=== PATIENT | female | born 1950 ===

== ENCOUNTER 2017-02-08 10:46 | Emergency (ER) | payer OTHER ==
[2017-02-08 11:05] VITALS: BP 122/83; PULSE 89; RESP 16; TEMP 98; O2SAT 100
--- NOTE | 2017-02-08 11:56 | ED PDOC ---
HPI: Wound Care - HPI Time Seen by Provider: 02/08/17 11:03 Chief Complaint (Nursing): Suture/Staple Removal History Per: Patient Additional Complaint(s): Pt. states on 12/21/2016 she had sutures placed on her L foot. Pt. states she did not get her sutures removed as she is DM and thought that she would require a longer time to heal. Denies pain, fever, discharge, swelling. Past Medical History Reviewed: Historical Data, Nursing Documentation, Vital Signs Vital Signs: Last Vital Signs Temp 98.0 F 02/08/17 11:18 Pulse 89 02/08/17 11:18 Resp 16 02/08/17 11:18 BP 122/83 02/08/17 11:18 Pulse Ox 100 02/08/17 11:18 - Family History Family History: States: No Known Family Hx - Allergies Allergies/Adverse Reactions: Allergies Allergy/AdvReac Type Severity Reaction Status Date / Time No Known Allergies Allergy Verified 02/08/17 11:18 Review of Systems ROS Statement: Except As Marked, All Systems Reviewed And Found Negative Physical Exam - Physical Exam Appears: Positive for: Well, Non-toxic, No Acute Distress Skin: Positive for: Normal Color, Warm. Negative for: Rash Extremity: Positive for: Normal ROM, Other (healing sutured wound on dorsal 5th MCP with [address] without surrounding erythema, swelling, or discharge ) - ECG O2 Sat by Pulse Oximetry: 100 - Progress ED Course And Treament: 3 sutures removed by PA without difficulty. Disposition - Clinical Impression Clinical Impression: Encounter for removal of sutures, Visit for wound check - Patient ED Disposition Is Patient to be Admitted: No - Disposition Disposition: Routine/Home Disposition Time: 11:40 Condition: STABLE Instructions: Stitches Removal (ED)
== END 2017-02-08 13:03 | disposition home or self-care (01) ==
LOC: H.ER 10:46
DX: Z48.02 Encounter for removal of sutures (principal)

== ENCOUNTER 2017-03-24 13:28 | Emergency (ER) | payer OTHER ==
[2017-03-24 13:40] VITALS: O2SAT 98
--- NOTE | 2017-03-24 14:40 | ED PDOC ---
Lower Extremity Pain/Injury Time Seen by Provider: 03/24/17 14:28 Chief Complaint (Nursing): Lower Extremity Problem/Injury Chief Complaint (Provider): Foot pain History Per: Patient Additional Complaint(s): Pt c/o right foot pain x 2 month, worse with ambulation. Denies injury. Hx of DM and HTN. Past Medical History Reviewed: Nursing Documentation, Vital Signs Vital Signs: Last Vital Signs Temp 98 F 03/24/17 13:36 Pulse 97 H 03/24/17 13:36 Resp 20 03/24/17 13:36 BP 135/71 03/24/17 13:36 Pulse Ox 98 03/24/17 13:36 - Medical History PMH: Diabetes, HTN - Family History Family History: States: Unknown Family Hx - Living Arrangements Living Arrangements: With Family - Social History Current smoker - smoking cessation education provided: No Alcohol: None Drugs: Denies - Immunization History Hx Tetanus Toxoid Vaccination: No Hx Influenza Vaccination: No Hx Pneumococcal Vaccination: No - Allergies Allergies/Adverse Reactions: Allergies Allergy/AdvReac Type Severity Reaction Status Date / Time No Known Allergies Allergy Verified 02/08/17 11:18 Review of Systems ROS Statement: Except As Marked, All Systems Reviewed And Found Negative Musculoskeletal: Positive for: Foot Pain Physical Exam - Reviewed Nursing Documentation Reviewed: Yes Vital Signs Reviewed: Yes - Physical Exam Appears: Positive for: Well, Non-toxic, No Acute Distress Head Exam: Positive for: ATRAUMATIC, NORMAL INSPECTION, NORMOCEPHALIC Skin: Positive for: Normal Color, Warm, DRY Eye Exam: Positive for: EOMI, Normal appearance, PERRL ENT: Positive for: Normal ENT Inspection Neck: Positive for: Normal, Painless ROM Cardiovascular/Chest: Positive for: Regular Rate, Rhythm Respiratory: Positive for: CNT, Normal Breath Sounds Gastrointestinal/Abdominal: Positive for: Normal Exam, Bowel Sounds, Soft Back: Positive for: Normal Inspection Extremity: Positive for: Normal ROM, Tenderness (toheel). Negative for: Deformity, Swelling Neurologic/Psych: Positive for: Alert, Oriented - Laboratory Results Result Diagrams: 03/24/17 15:20 03/24/17 15:20 - ECG O2 Sat by Pulse Oximetry: 98 Medical Decision Making Medical Decision Making: Pt declined analgesics at this time XRs obtained (+) NAD, heel spur identified Pt given podiatry referral and demonstrated full understanding Disposition - Clinical Impression Clinical Impression: Heel spur, Palpitations - Patient ED Disposition Is Patient to be Admitted: No - Disposition Referrals: Podiatry Clinic [Outside] Disposition: Routine/Home Disposition Time: 15:00 Condition: STABLE Instructions: Heel Spur (ED) Forms: [facility] (Chadian) Print Language: MACEDONIAN
[2017-03-24 15:28] LABS: BASO # 0.1 K/uL (0.0-0.2); EOS # 0.4 K/uL (0.0-0.7); EOS % 3.4 % (0.0-4.0); HEMATOCRIT 41.8 % (34.0-47.0); LYMPH # 3.9 K/uL (1.0-4.3); LYMPH % 30.5 % (20.0-40.0); MEAN CELL VOLUME 89.4 fl (81.0-99.0); MEAN CORPUSCULAR HEMOGLOBIN 29.8 pg (27.0-31.0); MEAN CORPUSCULAR HGB CONC 33.3 g/dL (33.0-37.0); MEAN PLATELET VOLUME 9.4 fl (7.2-11.7); MONO # 0.8 K/uL (0.0-0.8); MONO % 6.1 % (0.0-10.0); NEUT # 7.6 K/uL (1.8-7.0); NRBC % 0.2 % (0.0-0.0); RED CELL DISTRIBUTION WIDTH 13.6 % (11.5-14.5); WHITE BLOOD COUNT 12.8 K/uL (4.8-10.8)
[2017-03-24 15:40] LABS: ALB/GLOB RATIO 1.3 (1.0-2.1); ALKALINE PHOSPHATASE 88 U/L (38-126); ALT/SGPT 37 U/L (9-52); AST/SGOT 25 U/L (14-36); BILIRUBIN,TOTAL 0.4 mg/dl (0.2-1.3); BLOOD UREA NITROGEN 15 mg/dl (7-17); CALCIUM 9.4 mg/dL (8.4-10.2); CARBON DIOXIDE 23 mmol/L (22-30); CHLORIDE 104 mmol/L (98-107); GFR AFRICAN-AMERICAN > 60; GLUCOSE,RANDOM 181 mg/dL (65-105); POTASSIUM 4.3 MMOL/L (3.6-5.0); SODIUM 142 mmol/l (132-148); TOTAL PROTEIN 7.7 G/DL (6.3-8.2)
[2017-03-24 16:09] LABS: THYROID STIMULATING HORMONE 0.75 mIU/ML (0.46-4.68)
--- NOTE | 2017-03-24 16:40 | RAD ---
HISTORY: palpitations COMPARISON: None available. TECHNIQUE: Chest PA and lateral FINDINGS: Examination limited by habitus. LUNGS: Linear atelectasis, left lung base. Please note that chest x-ray has limited sensitivity for the detection of pulmonary masses. PLEURA: No significant pleural effusion identified. No definite pneumothorax . CARDIOVASCULAR: Heart size appears within normal limits. Dense atherosclerotic calcifications of the aortic knob. OSSEOUS STRUCTURES: Degenerative changes of the spine. VISUALIZED UPPER ABDOMEN: Unremarkable. OTHER FINDINGS: None. IMPRESSION: Linear atelectasis, left lung base.
--- NOTE | 2017-03-24 17:00 | RAD ---
PROCEDURE: Right Foot Radiographs. HISTORY: Heel pain. No antecedent history of trauma provided COMPARISON: None. FINDINGS: BONES: No acute fracture. Plantar calcaneal spurs. Plantar soft tissue swelling consistent with common not diagnostic of plantar fasciitis JOINTS: Normal. SOFT TISSUES: Normal. OTHER FINDINGS: None. IMPRESSION: No acute findings related to/accounting for the clinical presentation.
--- NOTE | 2017-03-24 17:01 | RAD ---
PROCEDURE: Radiographs of the right calcaneus/hindfoot. HISTORY: pain to heel COMPARISON: None available. TECHNIQUE: Frontal and lateral radiographs of the calcaneus. FINDINGS: No fracture or joint dislocation. No focal lesion. Plantar calcaneal spur, small. IMPRESSION: No acute findings related to/accounting for the clinical presentation.
[2017-03-24 17:13] VITALS: BP 128/76; PULSE 78; RESP 17; TEMP 97
--- NOTE | 2017-03-25 11:01 | CARD ---
APPROVED REPORT EKG Measurement Heart [id number] HI [id number] <Conclusion> Normal sinus rhythm Normal ECG
== END 2017-03-24 17:13 | disposition home or self-care (01) ==
LOC: H.ER 13:28
DX: M77.31 Calcaneal spur, right foot (principal); R00.2 Palpitations; E11.9 Type 2 diabetes mellitus without complications; I10 Essential (primary) hypertension